=== PATIENT | male | born 1995 | race Caucasian/White ===

== ENCOUNTER 2021-02-24 23:27 | Emergency (ER) | payer OTHER ==
[~2021-02-24] VITALS: Ht 172.7 cm; Wt 92.0 kg
[2021-02-24 23:36] VITALS: BP 134/94
== END 2021-02-25 01:00 | disposition left against medical advice (07) ==
LOC: ER 23:27
DX: R11.2 Nausea with vomiting, unspecified (principal); Z53.21 Procedure and treatment not carried out due to patient leaving prior to being seen by health care provider